=== PATIENT | female | born 1995 | race Caucasian/White ===

== ENCOUNTER 2022-06-03 19:30 | Inpatient (IN) | payer OTHER ==
[2022-06-03] MEDS ORDERED: NS w/ Oxytocin 30 units 500 ML IV SCH ×2 (22:15→23:15)
[2022-06-03] MEDS ORDERED: hydrALAZINE 20 MG/ML VIAL SLOW IVP PRN (22:54)
[2022-06-03] MEDS ORDERED: Penicillin G Potassium 5 MILL.UNITS in Sodium Chloride 0.9% 100 ML IVPB SCH (22:54)
[2022-06-03] MEDS ORDERED: Diphenoxylate HCl/Atropine Tablet PO PRN ×2 (22:54)
[2022-06-03] MEDS ORDERED: Promethazine HCl 25 MG/ML VIAL IM PRN (22:54)
[2022-06-03] MEDS ORDERED: Ondansetron PF 4 MG/2 ML Vial IVP PRN (22:54)
[2022-06-03] MEDS ORDERED: Acetaminophen 500 MG TAB PO PRN (22:54)
[2022-06-03] MEDS ORDERED: Zolpidem Tartrate 5 MG TAB PO PRN (22:54)
[2022-06-03] MEDS ORDERED: Ibuprofen 800 MG TAB PO PRN (22:54)
[2022-06-03] MEDS ORDERED: Docusate 100 MG CAP PO PRN (22:54)
[2022-06-03] MEDS ORDERED: Butorphanol Tartrate 1 MG/ML VIAL SLOW IVP PRN (22:54)
[2022-06-03] MEDS ORDERED: Misoprostol 200 MCG TAB PR PRN (22:54)
[2022-06-03] MEDS ORDERED: Lidocaine 1% (PF) 30 ML VIAL SC PRN (22:54)
[2022-06-03] MEDS ORDERED: HYDROcodone/Acetaminophen 5/325 mg Tablet PO PRN ×2 (22:54)
[2022-06-03] MEDS ORDERED: Misoprostol 100 MCG TAB ONE (22:58)
[2022-06-03 23:49] LABS: Hemoglobin 11.3 g/dL (12.0-15.5); Mean Corpuscular HGB CONC 34.3 g/dL (32.0-36.0); Mean Corpuscular Hemoglobin 29.1 pg (27.0-33.0); Mean Corpuscular Volume 84.8 fl (81.6-98.3); Mean Platelet Volume 10.6 fl (7.4-10.4); Platelet Count 277 10x3/uL (150-450); RBC Distribution Width 15.2 % (11.5-14.5); Red Blood Cell (RBC) Count 3.88 10x6/uL (3.90-5.03); White Blood Cell (WBC) Count 11.2 10x3/uL (3.5-10.5)
[2022-06-03] MEDS: Misoprostol 100 MCG TAB VAG SCH (23:54)
[2022-06-04 00:29] LABS: HBSAg Index 0.19 S/CO (0-0.99); HIV (1/2) Antibody/Antigen Non-Reactive (NonReactive); HIV 1/2 INDEX 0.14 S/CO (<1.00); Hep B Surf Ag Non-Reactive S/CO (NonReactive)
[2022-06-04 00:30] LABS: Syphilis Antibody Nonreactive (Nonreactive); Syphilis Antibody Index 0.03 S/CO (<1.00 Non-Reactive)
[2022-06-04 00:37] LABS: SARS-CoV-2 NAA Rapid Test Not Detected (NotDetected)
[2022-06-04] MEDS: Penicillin G 2.5 MILL.units 2.5 MILL.UNITS in Premix Bag 1 BAG IVPB SCH ×4 (04:16→11:54)
[2022-06-04] MEDS: Lactated Ringer's 1,000 ML IV SCH (11:53)
[2022-06-04] MEDS: Misoprostol 100 MCG TAB VAG SCH ×2 (11:53→15:41)
[2022-06-04] MEDS ORDERED: Zolpidem Tartrate 5 MG TAB PO PRN (12:24)
[2022-06-04] MEDS ORDERED: Milk Of Magnesia 30 ML UDCUP PO PRN (12:24)
[2022-06-04] MEDS ORDERED: Benzocaine-Menthol 82.5 ML CAN TOP PRN (12:24)
[2022-06-04] MEDS ORDERED: Lanolin Ointment 7 GM TUBE TOP PRN (12:24)
[2022-06-04] MEDS ORDERED: Boostrix 0.5 ML (Tdap) VIAL (>/=7 yrs of age) IM ONE (12:24)
[2022-06-04] MEDS ORDERED: Ondansetron PF 4 MG/2 ML Vial IVP PRN (12:24)
[2022-06-04] MEDS ORDERED: Bisacodyl 10 MG SUPP PR PRN (12:24)
[2022-06-04] MEDS ORDERED: hydrALAZINE 20 MG/ML VIAL SLOW IVP PRN (12:24)
[2022-06-04] MEDS ORDERED: Misoprostol 200 MCG TAB VAG PRN (12:24)
[2022-06-04] MEDS ORDERED: diphenhydrAMINE 25 MG CAP PO PRN (12:24)
[2022-06-04] MEDS ORDERED: Preparation H Ointment 28 GM TUBE PR PRN (12:24)
[2022-06-04] MEDS ORDERED: HYDROcodone/Acetaminophen 5/325 mg Tablet PO PRN ×2 (12:24)
[2022-06-04] MEDS ORDERED: NS w/ Oxytocin 30 units 500 ML IV SCH (12:30)
[2022-06-04] MEDS: Ibuprofen 800 MG TAB PO SCH ×2 (15:08→22:21)
[2022-06-04] MEDS: Ferrous Sulfate 325 MG TAB PO SCH (15:41)
[2022-06-04] MEDS: Docusate 100 MG CAP PO SCH (22:21)
[2022-06-05 02:34] VITALS: BMI 42.5
[2022-06-05] MEDS: Ibuprofen 800 MG TAB PO SCH ×2 (06:18→14:34)
[2022-06-05 06:39] LABS: Hemoglobin 10.2 g/dL (12.0-15.5); Mean Corpuscular HGB CONC 33.8 g/dL (32.0-36.0); Mean Corpuscular Volume 85.8 fl (81.6-98.3); Mean Platelet Volume 10.6 fl (7.4-10.4); Platelet Count 244 10x3/uL (150-450); RBC Distribution Width 15.1 % (11.5-14.5); Red Blood Cell (RBC) Count 3.52 10x6/uL (3.90-5.03); White Blood Cell (WBC) Count 13.7 10x3/uL (3.5-10.5)
[2022-06-05] MEDS: Ferrous Sulfate 325 MG TAB PO SCH ×2 (08:30→17:02)
[2022-06-05] MEDS: Docusate 100 MG CAP PO SCH (09:50)
[2022-06-05 11:33] VITALS: BP 117/71; TEMP 97.6
== END 2022-06-05 20:00 | disposition home or self-care (01) | DRG 806 ==
LOC: CSHLD 20:25 → CSHPP 06-04 11:50 → CSHLD 06-04 11:55 → CSHPED 06-04 14:50
PROVIDERS: ADMIT Obstetrics & Gynecology; ATTEND Obstetrics & Gynecology
PROC: 10E0XZZ Delivery of Products of Conception, External Approach (ICD-10-PCS; principal; 2022-06-04)
PROC: 10907ZC Drainage of Amniotic Fluid, Therapeutic from Products of Conception, Via Natural or Artificial Opening (ICD-10-PCS; 2022-06-04)
PROC: 3E0P7VZ Introduction of Hormone into Female Reproductive, Via Natural or Artificial Opening (ICD-10-PCS; 2022-06-04)
PROC: 0HQ9XZZ Repair Perineum Skin, External Approach (ICD-10-PCS; 2022-06-04)
DX: O99.824 Streptococcus B carrier state complicating childbirth (principal); D68.59 Other primary thrombophilia; Z37.0 Single live birth; Z3A.38 38 weeks gestation of pregnancy; Z20.822 Contact with and (suspected) exposure to COVID-19; O99.12 Other diseases of the blood and blood-forming organs and certain disorders involving the immune mechanism complicating childbirth; O99.02 Anemia complicating childbirth; D64.9 Anemia, unspecified; Z90.49 Acquired absence of other specified parts of digestive tract; Z79.82 Long term (current) use of aspirin; Z86.16 Personal history of COVID-19
CPT/HCPCS: 36415; 85027; 86780; 86850; 86900; 86901; 87340; 87389; J2540; J2590; J3490; U0002